=== PATIENT | male | born 1945 | race Caucasian/White ===

== ENCOUNTER → 2018-05-03 | Outpatient (CLI) | payer MEDICARE, OTHER ==
[~2018-05-03] MED LIST: ASPIRIN E.C. 8181 MG PO; COUMADIN4 MG PO; FOLIC ACID 40400 MCG PO; IRON325 M1 PO; LOPRESSOR 225 MG/TAB PO; MULTI VITAMINS1 TAB PO; NORCO 325 MG-7.1 TAB PO; VITAMIN C500 MG PO; ZOCOR 40MG40 MG PO
== END ==
LOC: COL.LAB 12:00
DX: Z01.812 Encounter for preprocedural laboratory examination (principal)